=== PATIENT | female | born 1940 | race Caucasian/White ===

== ENCOUNTER 2020-12-06 08:28 | Emergency (ER) | payer MEDICARE ==
[~2020-12-06] VITALS: Ht 144.8 cm; Wt 53.2 kg
[~2020-12-06 08:28] MED LIST: VALIUM 2MG T2 MG/TAB PO; ZANTAC 7575 MG PO
[2020-12-06 09:22] LABS: BASO % 0.7 % (0.0-2.0); EOS # 0.3 (0.0-0.7); EOS % 5.3 % (0-4.0); GRAN # 2.7 (1.4-6.5); GRAN % 44.9 % (42.2-75.2); HEMOGLOBIN 10.7 g/dl (12.5-16.0); LYMPH # 2.4 (1.2-3.4); MEAN CELL VOLUME 91 fl (80.0-100.0); MEAN CORPUSCULAR HEMOGLOBIN 30 pg (27.0-31.0); MEAN CORPUSCULAR HGB CONC 33 g/dl (33.0-37.0); MONO # 0.6 (0.1-0.6); MONO % 9.9 % (1.7-9.3); PLATELET COUNT 223 K/mm3 (130-400); RED BLOOD COUNT 3.61 M/mm3 (4.10-5.30); REDCELL DISTRIBUTION WIDTH-CV 14.5 % (11.5-14.5)
[2020-12-06 09:24] LABS: HEMATOCRIT 32.8 % (37.0-47.0)
[2020-12-06 09:25] LABS: INR 0.9 (0.8-3.0); PROTHROMBIN TIME 10.3 SECONDS (9.7-12.8)
[2020-12-06 09:28] LABS: ALANINE AMINOTRANSFERASE 8 U/L (4-34); ALBUMIN 3.7 gm/dL (3.5-5.0); ALKALINE PHOSPHATASE 92 U/L (50-136); ANION GAP 4 mmol/L (7-16); AST,SGOT 23 U/L (15-37); BILIRUBIN,TOTAL 0.2 mg/dL (0.0-1.0); BLOOD UREA NITROGEN 12 mg/dL (7-17); CALCIUM 8.8 mg/dL (8.4-10.2); CARBON DIOXIDE 25 mmol/L (22-30); CHLORIDE 102 mmol/L (98-107); CREATININE, serum 0.98 (0.52-1.25); GLUCOSE 80 mg/dL (74-106); PARTIAL THROMBOPLASTIN TIME 26.2 SECONDS (26.0-37.0); POTASSIUM 4.5 mmol/L (3.4-5.0); SODIUM 131 mmol/L (137-145); TOTAL PROTEIN 6.8 gm/dL (6.4-8.2)
[2020-12-06 09:29] LABS: D-DIMER < 200.00 ng/mLDDu (200-230)
[2020-12-06 09:40] LABS: TROPONIN-I < 0.012 ng/mL (0.000-0.035)
[2020-12-06 10:36] VITALS: BP 133/77; PULSE 61; TEMP 98.1
== END 2020-12-06 10:36 | disposition home or self-care (01) ==
LOC: COL.ER 08:28
PROVIDERS: Family Medicine
DX: F41.9 Anxiety disorder, unspecified (principal); J44.9 Chronic obstructive pulmonary disease, unspecified; F17.210 Nicotine dependence, cigarettes, uncomplicated

== ENCOUNTER 2020-12-07 10:53 | Emergency (ER) | payer MEDICARE ==
[~2020-12-07] VITALS: Ht 175.3 cm; Wt 53.2 kg
[2020-12-07 11:01] VITALS: TEMP 98
[2020-12-07 12:50] VITALS: BP 153/74; PULSE 58
--- NOTE | 2020-12-07 14:31 | NUR ---
Retail Wireless Sales Representative consulted due to the patient's second ED visit in the past two days. Per EMR the patient visited the [facility] the day prior this hospital's ED visits. Journeyman Powerhouse Operator staffed with the patient's nurse and she states the patient has had a work up yesterday 12/06. The patient is in the ED this day for SOA. The patient is upset do to the patient's son left the house this morning without giving her her medication. SOLO met with the patient. The patient lives independently in [place] with her son Charles. The patient does not have home health and declines home health at this time. The patient's PCP is Dr. Nation. The patient's son Charles manages her medications. SOLO contacted Charles. Charles states [facility] the [facility] this [facility]. When he left, the patient was sleeping and did not inform her. SOLO discussed the patient's medications. Charles states that the patient is allowed five anxiety meds a day after she smokes a cigarette to manage SOB. Per Charles the patient smokes 10 cigarettes a day and wants him to give her more pills. Charles refuses and this upsets the patient, causing her anxiety. Charles reports the patient's PCP is aware of the above information and they have an appointment this day at 1620 to address the above. SOLO discussed home health with Charles, he declined at this time. SOLO informed Charles if he changes his mind he could discuss home health with PCP. SOLO contacted the patient's PCP. SOLO spoke with the nurse. She is aware of the above information and will address concerns with the patient and Charles at this day's appointment. SOLO made APS report. Intake # [id number]. SOLO collaborated the above information with the patient's nurse.
== END 2020-12-07 12:50 | disposition home or self-care (01) ==
LOC: COL.ER 10:53
DX: F41.9 Anxiety disorder, unspecified (principal); R06.02 Shortness of breath; I10 Essential (primary) hypertension; F17.210 Nicotine dependence, cigarettes, uncomplicated

== ENCOUNTER 2020-12-26 19:18 | Observation (INO) | payer MEDICARE ==
[~2020-12-26] VITALS: Ht 144.8 cm; Wt 53.2 kg
[2020-12-26 19:21] VITALS: TEMP 98.1
[2020-12-26 20:12] LABS: COLLECTION METHOD CLEAN CATCH
[2020-12-26 20:15] LABS: BASO % 0.4 % (0.0-2.0); EOS # 0.3 (0.0-0.7); EOS % 3.2 % (0-4.0); GRAN # 4.4 (1.4-6.5); GRAN % 55.3 % (42.2-75.2); HEMATOCRIT 31.8 % (37.0-47.0); LYMPH # 2.5 (1.2-3.4); LYMPH % 30.9 % (20.0-51.0); MEAN CELL VOLUME 88 fl (80.0-100.0); MEAN CORPUSCULAR HEMOGLOBIN 31 pg (27.0-31.0); MEAN CORPUSCULAR HGB CONC 35 g/dl (33.0-37.0); MEAN PLATELET VOLUME 8.3 fl (7.4-10.4); MONO # 0.8 (0.1-0.6); MONO % 9.7 % (1.7-9.3); PLATELET COUNT 291 K/mm3 (130-400); REDCELL DISTRIBUTION WIDTH-CV 15.6 % (11.5-14.5)
[2020-12-26 20:19] LABS: PH 6 (5-8); SQUAMOUS EPITHELIAL 0-2 /hpf; URINE APPEARANCE Clear; URINE BACTERIA None Seen /hpf; URINE BILIRUBIN Negative (NEGATIVE); URINE BLOOD 1+ (NEGATIVE); URINE COLOR Straw; URINE GLUCOSE Negative (NEGATIVE); URINE KETONE Negative (NEGATIVE); URINE LEUKOCYTE ESTERASE Negative (NEGATIVE); URINE NITRATE Negative (NEGATIVE); URINE PROTEIN(semi-quant) Negative (NEGATIVE); URINE RBC 0-2 /hpf; URINE UROBILINOGEN Negative (NEGATIVE)
[2020-12-26 20:23] LABS: INR 0.9 (0.8-3.0); PROTHROMBIN TIME 10.2 SECONDS (9.7-12.8)
[2020-12-26 20:26] LABS: BILIRUBIN,TOTAL 0.4 mg/dL (0.0-1.0); CREATININE, serum 0.78 (0.52-1.25); POTASSIUM 4.2 mmol/L (3.4-5.0); TOTAL PROTEIN 7.3 gm/dL (6.4-8.2)
[2020-12-26 20:44] LABS: TROPONIN-I 0.065 ng/mL (0.000-0.035)
[2020-12-26 21:09] LABS: C-REACTIVE PROTEIN 1.6 mg/dL (0.0-0.9)
[2020-12-27 00:30] VITALS: BP 127/68; PULSE 78
--- NOTE | 2020-12-27 01:39 | NUR ---
Patient arrived medical floor room 354 from ER via bed at 0100 am. Patient walked from the door to the bed with stand-by asssist. Patient ambulates slow, but steady gait. Per patient she uses walker at home. Patient and family made comfort care decision at ER. Patient had sandwitch box upon arrival to the room 354. Patient A/O x3. Patient denies chest pain, SOB, N/V, headache or dizziness. Oriented patient to the room. Call light within reach, bed-alarms on. Encouraged patient to use call light if she needs anything. Patient verbalized understanding.
--- NOTE | 2020-12-27 06:28 | NUR ---
Patient c/o right leg pain 10/23 around 0200. PRN Roxanol given per SEP. PRN Ativan given for anxiety. PRN Zofran given for nausea around 0230 am. Patient has been using bed-side commode to voidx2. Patient asleep at this time. No acute distress noted. Call light within reach.
--- NOTE | 2020-12-27 07:41 | NUR ---
Patient awake in bed at this time. Breakfast ordered. Patient denies any pain, discomfort, or futher needs at this time. Will continue to monitor. Call light in reach.
--- NOTE | 2020-12-27 09:00 | NUR ---
PRN Ativan given per request of the paitient. Assessment preformed. Patient denies any pain, discomfort, SOA, or futher needs at this time. Will continue to monitor. Call light in reach. Fall precautions in place.
--- NOTE | 2020-12-27 10:02 | NUR ---
Initial visit; Patient and her grandson; Gopi thanked [employer] for stopping by and offering spiritual care. Patient thanked [employer] for keeping her in [employer]'s prayers.
--- NOTE | 2020-12-27 11:01 | NUR ---
I spoke with daughter Terrie Lopez by phone this morning to verify that she had requested records be sent to [facility] for her mother which she did verify. Their corporate sales representative from [facility] will be here around 4pm today to talk with pt and Charles Solis, also DPOA-HC about hospice admission. I did talk with Terrie about hospice services in the area, how a transfer to hospice might be managed in this circumstance. She is an experienced hospice nurse herself. Her son is at bedside and her brother Charles has also just arrived. They will be leaving soon for a break and return around 3pm to be ready to meet with the hospice corporate sales representative. Comfort quilt was provided and information was relayed to Terrie and to Charles. Pt remains on comfort care.
--- NOTE | 2020-12-27 11:12 | NUR ---
Patient up to the bathroom. Denies futher needs at this time. Will continue to monitor. Call light in reach. Fall precautions in place.
--- NOTE | 2020-12-27 13:17 | NUR ---
PRN ATIVAN GIVEN.
--- NOTE | 2020-12-27 15:44 | NUR ---
Customer Contact Specialist met with patient and her son, Charles (ph#[phone]) to discuss discharge planning. Palliative Consult ordered and Eloise Palliative RN has been in contact with [facility] as patient's daughter, Terrie (ph#[phone]) had already been in contact with them. Eloise advised she faxed cinical information to [facility] and was advised the hospice house would have openings tomorrow. Patient advised that she lives in [place] with her son, Charles. Patient sees Dr. Nation for primary care. Charles advised things were not going very well at home and felt like he and patient frequently argued. Charles feels that patient needs more care than what he can provide. Charles reports that [facility] will be here this afternoon to discuss options and availability with he and patient today. Charles advised that his sister, Terrie will also be on speakerphone to be involved with this meeting. SW reviewed options including hospice at home, hospice at a long term, and the [facility]. SW will continue to follow for discharge needs and decision on discharge disposition. Discharge Plan: Hospice, family and patient considering options.
--- NOTE | 2020-12-27 16:22 | NUR ---
PRN ROXANOL GIVEN FOR LEG PAIN.
--- NOTE | 2020-12-27 17:30 | NUR ---
PRN Ativan given. Patient C/O restless legs. Poell called and requip and muscle relaxer to be ordered. Family at the bedside. Hospice met with patient and family today, should discharge tommorrow on hospice. Will continue to monitor. Call light in reach. Fall precaution in place.
--- NOTE | 2020-12-27 23:24 | NUR ---
Shift assessment completed. Patient sitting up on the edge of bed upon enter. Patient oriented to self only, able to tell her name and date of . Patient confused about time, place, and situation. Patient states "I want to go home, I have to figure out what's going on." Oriented patient to the place and situation. Patient reports having anxiety and pain to her legs. PRN Ativan and Roxanol given per SEP. Call light within reach. Bed-alarms on. Will continue to monitor.
--- NOTE | 2020-12-28 05:29 | NUR ---
Patient was confused, anxious and agitated most of night. Only slept about 2 hours and awake most of night. Patient keeps standing up from bed and attempting to walk out of the room. Unsteady gait and needs 1 person assist. Patient states she wants to go home. PRN Ativan and Roxanol given per SEP. After recieving Ativan, patient appears more calm. Patient just sitting up in bed and stairing at the nursing station. Re-oriented patient frequently and snacks provided. Call light within reach. Bed-alarms on.
--- NOTE | 2020-12-28 07:30 | NUR ---
Patient sitting up in bed looking out the door. Denies pain and discomfort. IV CDI. No further needs expressed from the patient. Call light within reach. Bed alarm on and door left open
--- NOTE | 2020-12-28 10:25 | NUR ---
I have had several conversations with Brandy hdez [facility] and she advises me that they are looking at their director accepting pt to hospice as her PCP will not admit. The family had verbalized significant concern about pt wandering and they are looking at options for managing this behavior. I did relay Dr Tapia's plan to discharge today--either home or to hospice house.
[2020-12-28] MEDS ORDERED: PROAIR HFA0.09 MG/AC IH (12:11)
[2020-12-28] MEDS ORDERED: FLEXERIL 1010 MG/TAB PO (12:12)
[2020-12-28] MEDS ORDERED: TRANSDERM-0.5 MG/21 TD (12:13)
[2020-12-28] MEDS ORDERED: DULCOLAX S10 MG/SUPP RC (12:13)
[2020-12-28] MEDS ORDERED: SYSTANE 0.3-0.1 EACH OP (12:13)
[2020-12-28] MEDS ORDERED: ATIVAN 1MG T1 MG/TAB PO (12:14)
[2020-12-28] MEDS ORDERED: ROXANOL 20MG20 MG/ML SL (12:14)
--- NOTE | 2020-12-28 12:39 | NUR ---
Patient had an uneventful day. Patient transfered from the bed to the recliner for breakfast. Has been resting intermittently. Family was at the bedside in the morning. IV CDI. Patient to go home with hospice later today. Call light within reach. Chair alarm on
--- NOTE | 2020-12-28 15:15 | NUR ---
PT DISCHARGED ON HOSPICE. MEDICATIONS EXPLAINED TO FAMILY.
--- NOTE | 2020-12-28 15:32 | NUR ---
Supervisor Poultry Farm attended clinical rounds with the team and patient is ready for discharge today. SOLO collaborated with Eloise Palliative RN and Brandy at [facility]. Brandy advised they cannot accept at the house due to concerns for patient's wandering. Brandy reports they have talked with patient's two children, Terrie and Charles who are both in agreement for patient to discharge home with hospice. SOLO contacted both Terrie and Charles who confirmed they are in agreement with discharge home with hospice services. SOLO collaborated with bedside RN, Amalia who advised patient would be able to transport via private car. SOLO collaborated with Charles who advised he will machine operator hop picker patient around 1600. [facility]andy at [facility] advised they will have their team go out to the home tomorrow at 0830 to admit patient. SOLO again contacted Charles who is agreeable to this plan. SOLO faxed discharge orders to [facility] at [facility]. Discharge Plan: Home with [facility].
--- NOTE | 2020-12-28 16:25 | NUR ---
The patient is a max assist with transfers. The RN notified SOLO's that they are able to assist the patient, along with the help of the patient's son, into his vehicle, but that the son would need help getting the patinet into their home. SOLO followed up with Brandy at [facility]. Brandy reports that their workers are all busy and would not be able to provide assistance. She suggested having EMS help. SOLO contacted Ashwin at EMS. Ashwin reports that they can have a truck meet the patient and her family at their home at 1615 to help get the patient into the home. SOLO updated the patient's RN and she informed the patient's son. SOLO was then transferred a call from the patient's son. He had concerns about how to give the patient her medications. SOLO transferred the call to the patient's RN for some education. SOLO also notified Brandy at [facility] and requested that one of their RNs contact the patient's son now. Brandy reports that they will do this.
== END 2020-12-28 15:15 | disposition hospice, home (50) ==
LOC: COL.ER 19:18 → MEDICAL 23:15
PROVIDERS: Nurse Practitioner Primary Care; ADMIT Internal Medicine
DX: I21.3 ST elevation (STEMI) myocardial infarction of unspecified site (principal); I10 Essential (primary) hypertension; E87.1 Hypo-osmolality and hyponatremia; D64.9 Anemia, unspecified; I26.99 Other pulmonary embolism without acute cor pulmonale; J44.9 Chronic obstructive pulmonary disease, unspecified; G25.81 Restless legs syndrome; R41.82 Altered mental status, unspecified; F32.9 Major depressive disorder, single episode, unspecified; F03.90 Unspecified dementia, unspecified severity, without behavioral disturbance, psychotic disturbance, mood disturbance, and anxiety; F41.9 Anxiety disorder, unspecified; F17.210 Nicotine dependence, cigarettes, uncomplicated; Z79.899 Other long term (current) drug therapy
CPT/HCPCS: 99223-AI; G0378; J1644; J2060; J2405